=== PATIENT | female | born 1970 | race Caucasian/White ===

== ENCOUNTER 2020-12-16 17:16 | Emergency (ER) | payer SELFPAY ==
[~2020-12-16] VITALS: Ht 154.9 cm; Wt 78.0 kg
[2020-12-16 17:26] VITALS: BP 132/87
== END 2020-12-16 22:07 | disposition left against medical advice (07) ==
LOC: ER 17:16
DX: Z53.21 Procedure and treatment not carried out due to patient leaving prior to being seen by health care provider (principal); I49.9 Cardiac arrhythmia, unspecified
CPT/HCPCS: 93005